=== PATIENT | male | born 1970 | race Two or more races ===

== ENCOUNTER 2022-05-22 18:29 | Emergency (ER) | payer OTHER ==
[~2022-05-22] VITALS: Ht 165.1 cm; Wt 106.8 kg
[2022-05-22] MEDS ORDERED: IBUP800T26 PO (21:02)
[2022-05-22] MEDS ORDERED: KETOROLAC TROMETH 30 MG/ML 1ML VIAL IM ONE (22:45)
[2022-05-22 23:38] VITALS: BP 162/96
== END 2022-05-22 23:50 | disposition home or self-care (01) ==
LOC: ER 18:29
DX: S06.899A Other specified intracranial injury with loss of consciousness of unspecified duration, initial encounter (principal); M25.532 Pain in left wrist; W11.XXXA Fall on and from ladder, initial encounter; Y93.89 Activity, other specified; Y92.89 Other specified places as the place of occurrence of the external cause; Y99.8 Other external cause status
CPT/HCPCS: 70450; 72125; 73110; 96372; 99285; J1885